=== PATIENT | male | born 1965 | race Two or more races ===

== ENCOUNTER 2022-01-11 05:06 | Inpatient (IN) | payer MEDICAID, OTHER ==
[~2022-01-11] VITALS: Ht 157.5 cm; Wt 90.3 kg
[2022-01-11] VITALS (48 sets, daily range): BP systolic 33–120; BP diastolic 21–68
--- NOTE | 2022-01-11 05:10 | NUR ---
VU 39 FROM [facility] FOR C/O LOW SAT. PATIENT ONLY RESPONSIVE TO PAINFUL STIMULI. RT WAS CALLED. PATIENT IN BED 08 ON MONITOR AND POX, AWAITING MD MONCADA.
--- NOTE | 2022-01-11 05:15 | NUR ---
rt placed pt on vent in er. pt trach and vent dependent. pt has increased rr at this time with low bp. peep discontinued. Addendum: 01/11/22 at 0609 by CLARITZA MOSQUEDA RT Amended: Links added.
[2022-01-11] MEDS ORDERED: VANCOMYCIN 1 GM VIAL ONE (05:28)
[2022-01-11] MEDS ORDERED: IV NS 0.9% 1,000 ML BAG IV ONE (05:30)
[2022-01-11] MEDS ORDERED: VANCOMYCIN 1 GM in IV D5W 250 ML IV ONE (05:30)
[2022-01-11] MEDS ORDERED: CEFEPIME 1 GM in IV D5W 50 ML IV ONE (05:30)
--- NOTE | 2022-01-11 05:30 | NUR ---
BLOOD AND CULTURES COLLECTED AND SENT TO LAB
--- NOTE | 2022-01-11 05:38 | NUR ---
XRAY AT BEDSIDE
--- NOTE | 2022-01-11 05:39 | NUR ---
ABEL CATHETER IN PLACE, BUT NO URINE OUTPUT.
--- NOTE | 2022-01-11 05:41 | NUR ---
COVID SWAB DONE AND SENT TO LAB
[2022-01-11 05:56] LABS: BASOPHILS % (AUTO) 0.3 % (0.0-2.0); EOSINOPHILS % (AUTO) 0.7 % (0.0-6.0); HEMATOCRIT 32 % (39-51); HEMOGLOBIN 10.3 g/dL (13.5-17.5); LYMPHOCYTES # (AUTO) 1.2 K/uL (0.8-4.8); LYMPHOCYTES % (AUTO) 13.4 % (20.0-44.0); MEAN CORPUSCULAR HGB CONC 32 g/dl (31.0-36.0); MEAN CORPUSCULAR VOLUME 95 fL (80-96); MONOCYTES # (AUTO) 0.1 K/uL (0.1-1.30); MONOCYTES % (AUTO) 0.9 % (2.0-12.0); NEUTROPHILS # (AUTO) 7.7 K/uL (1.8-8.9); NEUTROPHILS % (AUTO) 84.7 % (43.0-81.0); PLATELET COUNT (AUTO) 301 K/uL (150-450); RED BLOOD CELL COUNT(AUTO) 3.39 MIL/uL (4.5-6.0); WHITE BLOOD COUNT (AUTO) 9.1 K/uL (4.3-11.0)
[2022-01-11 06:18] LABS: CALCIUM, SERUM 8.6 mg/dL (8.5-10.1); CARBON DIOXIDE 15 mmol/L (21-32); CHLORIDE 101 mmol/L (98-107); CREATININE 2.1 mg/dL (0.6-1.3); GLUCOSE 127 mg/dL (74-106); SODIUM SERUM 138 mmol/L (136-145); UREA NITROGEN, BLOOD 30 mg/dL (7-18)
[2022-01-11] MEDS ORDERED: NOREPINEPHRINE 4 MG/4 ML AMPUL IV ONE (06:20)
--- NOTE | 2022-01-11 06:29 | NUR ---
LEVOPHED INITIATED AT 0.1MG @CENTRAL LINE INFUSING WELL. Addendum: 01/11/22 at 0653 by SANDEE MCG*
[2022-01-11 06:42] LABS: ALANINE AMINOTRANSFERASE 87 U/L (12-78); ALBUMIN 1.8 g/dL (3.4-5.0); ASPARTATE AMINOTRANSFERASE 125 U/L (15-37); BILIRUBIN,DIRECT 1.7 mg/dL (0.0-0.2); BILIRUBIN,TOTAL 1.9 mg/dL (0.2-1.0); TOTAL PROTEIN, SERUM 6.4 g/dL (6.4-8.2)
[2022-01-11] MEDS: NOREPINEPHRINE 8 MG in IV NS 0.9% 242 ML IV PRN ×6 (06:42→10:13)
[2022-01-11 06:47] LABS: ALKALINE PHOSPHATASE 1245 U/L (46-116)
--- NOTE | 2022-01-11 06:52 | NUR ---
LEVOPHED AT 0.5MCG/KG/MIN BP IMPROVING AT 99/51 INFUSING WELL.
[2022-01-11] MEDS ORDERED: ACETAMINOPHEN 650 MG/SUPP.RECT RC ONE ×2 (07:00→07:10)
--- NOTE | 2022-01-11 07:15 | NUR ---
[facility] PAGED
--- NOTE | 2022-01-11 07:30 | NUR ---
RECEIVED PT FROM JOSE MANNING WITH TRACH CONECTED TO MECHINCLE VENT SITTING TV 500 AC14 FIO2 60% O2 SAT 100% LEVOPHED DRIP AT 0.7MCG/KG/MIN
--- NOTE | 2022-01-11 08:07 | NUR ---
LAB CALLED [facility] [address] DR[address] PARKER AWARE.
[2022-01-11] MEDS ORDERED: LEVE100S GT (08:20)
[2022-01-11] MEDS ORDERED: DOCU-141 GT (08:20)
[2022-01-11] MEDS ORDERED: ASPI-1169 GT (08:20)
[2022-01-11] MEDS ORDERED: GLYC2TAB21 GT (08:20)
[2022-01-11] MEDS ORDERED: CHLO473M5 MM (08:20)
[2022-01-11] MEDS ORDERED: AMIN30LI2 GT (08:20)
[2022-01-11] MEDS ORDERED: LEVO25TA7 GT (08:20)
[2022-01-11] MEDS ORDERED: CRAN425C6 GT (08:20)
[2022-01-11] MEDS ORDERED: POVI3780 TP (08:20)
[2022-01-11] MEDS ORDERED: NA P133E RC (08:20)
[2022-01-11] MEDS ORDERED: CHLO118L6 TP (08:20)
[2022-01-11] MEDS ORDERED: LORA-259 GT (08:20)
[2022-01-11] MEDS ORDERED: RIVA10TA GT (08:20)
[2022-01-11] MEDS ORDERED: SENN-261 GT (08:20)
[2022-01-11] MEDS ORDERED: POLY17PO4 GT (08:20)
[2022-01-11] MEDS ORDERED: ASCO-352 GT (08:20)
[2022-01-11] MEDS ORDERED: CHOL100043 GT (08:20)
[2022-01-11] MEDS ORDERED: PETR113O TP (08:20)
[2022-01-11] MEDS ORDERED: ACET-868 GT (08:20)
[2022-01-11] MEDS ORDERED: MAGN400O6 GT (08:20)
[2022-01-11] MEDS ORDERED: ACET-2605 GT (08:20)
[2022-01-11] MEDS ORDERED: ALBU2.5V38 IH ×2 (08:20)
[2022-01-11] MEDS ORDERED: LACT-209 GT (08:20)
[2022-01-11] MEDS ORDERED: CRAN3875 GT (08:20)
[2022-01-11] MEDS ORDERED: INSU100V11 SQ (08:20)
[2022-01-11] MEDS ORDERED: OMEP20CA15 GT (08:20)
[2022-01-11] MEDS ORDERED: HYDR-4076 GT (08:20)
[2022-01-11] MEDS ORDERED: GLUC1KIT IM (08:20)
[2022-01-11] MEDS ORDERED: BISA10SU11 RC (08:20)
[2022-01-11] MEDS ORDERED: LACT1CAP69 GT (08:20)
[2022-01-11] MEDS ORDERED: LORA2VIA6 IM (08:20)
[2022-01-11] MEDS ORDERED: IPRA0.2S9 IH ×2 (08:20)
--- NOTE | 2022-01-11 08:56 | NUR ---
room 253
--- NOTE | 2022-01-11 09:25 | NUR ---
pt condition criticale contenue levophed drip at 0.7mcg/kg/min at 122m/hr bp 91/54mmhg
--- NOTE | 2022-01-11 09:25 | NUR ---
HAND OFF GARRET RN TO ICU CHANGE DRESSING ON RT FEMORALE
--- NOTE | 2022-01-11 09:45 | NUR ---
RN OPENING NOTE PT RECEIVED FROM ED AND IS ON MECHANICAL VENT WITH ALL PRESCRIBED SETTINGS TOLERATING WELL O2 SAT 100%. PT IS A/OX 0 AT THIS TIME NON VERBAL AND ONLY RESPONSIVE TO LIGHT AND DEEP PAIN STIMULATION. GTUBE WAS LEAKY WHEN RECEIVED AND CLAMPED AT THIS TIME. FC IS IN PLACE NO URINE DRAINING AT THIS TIME. IV ACCESS R FEMORAL CENTRAL LINE INFUSING WITH NS @75ML/HR AND LEVO @0.7MCG; R ANKLE IV; L UA. BED IS LOCKED IN LOWEST POSITION X2 BED RAILS UP AND ALL HOSPITAL SAFETY MEASURES ARE IN PLACE. WILL CONTINUE TO MONITOR THIS SHIFT.
[2022-01-11] MEDS ORDERED: MAGNESIUM HYDROXIDE 30 ML UDC PO PRN (10:00)
[2022-01-11] MEDS ORDERED: ONDANSETRON HCL/PF 4 MG/2 ML VIAL IVP PRN (10:00)
[2022-01-11] MEDS ORDERED: DEXTROSE 50%-WATER 50 ML DISP.SYRIN IV PRN ×2 (10:00→15:00)
[2022-01-11] MEDS ORDERED: MAGNESIUM HYDROXIDE 30 ML UDC GT PRN (10:00)
[2022-01-11] MEDS ORDERED: BISACODYL SUPP (10 MG) 10 MG/SUPP.RECT SUPP.RECT RC PRN (10:00)
[2022-01-11] MEDS ORDERED: IV NS 0.9% 1,000 ML IV PRN ×2 (10:00→10:26)
[2022-01-11] MEDS ORDERED: ACETAMINOPHEN 325 MG TABLET PO PRN ×2 (10:00)
[2022-01-11] MEDS ORDERED: NA PHOS,M-B/NA PHOS,DI-BA 1 EA ENEMA RC PRN (10:00)
[2022-01-11] MEDS ORDERED: *INSULIN REGULAR(HUMULIN R)HUM 100 UNIT/ML VIAL SQ PRN (10:00)
[2022-01-11] MEDS ORDERED: MAG HYDROX/AL HYDROX/SIMETH 30 ML UDC PO PRN (10:00)
[2022-01-11] MEDS ORDERED: Z GUARD REMEDY 4 OZ OINT TP PRN (10:00)
[2022-01-11] MEDS ORDERED: JEVITY 1.2 CAL 1,000 ML BOTTLE GT SCH (10:00)
[2022-01-11] MEDS ORDERED: INSULIN REGULAR, HUMAN 100 UNIT/ML 3 ML VIAL SQ PRN ×2 (10:00→15:00)
[2022-01-11] MEDS ORDERED: VANCOMYCIN 500 MG in IV D5W 100ml IV ONE (11:00)
[2022-01-11] MEDS: PROPOFOL 100 ML IV PRN ×4 (11:01→18:46)
--- NOTE | 2022-01-11 11:01 | NUR ---
RN NOTE: DIPRIVAN DIPRIVAN STARTED AT THIS TIME 5MCG/KG/MIN.
--- NOTE | 2022-01-11 11:19 | NUR ---
RN NOTE: KAROL PT BS 78. PER SLIDING SCALE, NO COVERAGE NEEDED AT THIS TIME.
[2022-01-11] MEDS ORDERED: IV NS 0.9% 250 ML IV PRN (11:30)
[2022-01-11] MEDS ORDERED: NOREPINEPHRINE 8 MG in IV NS 0.9% 242 ML IV PRN (11:30)
[2022-01-11] MEDS ORDERED: BLOOD SUGAR DIAGNOSTIC 1 EACH STRIP VI SCH (12:00)
[2022-01-11] MEDS: PHENYLEPHRINE 50 MG in IV NS 0.9% 245 ML IV PRN ×2 (12:31→17:51)
--- NOTE | 2022-01-11 12:31 | NUR ---
RN NOTE: JAQUAN NEOSYNEPHRINE STARTED AT THIS TIME @ 0.5MCG/KG/MIN.
--- NOTE | 2022-01-11 12:47 | NUR ---
RN NOTE: SODIUM BICARB SODIUM BICARB STARTED AT THIS TIME @125ML/HR.
[2022-01-11] MEDS ORDERED: Sodium Bicarbonate 150 MEQ in IV D5W 1,000 ML IV SCH (13:00)
[2022-01-11] MEDS: NOREPINEPHRINE 32 MG in IV NS 0.9% 218 ML IV PRN ×2 (13:24→18:40)
--- NOTE | 2022-01-11 13:24 | NUR ---
RN NOTE: LEVO 32MG CONCENTRATION OF LEVOPHED STARTED AT THIS TIME.
[2022-01-11] MEDS: ZOSYN IVPB 3.375 G in IV D5W 50ml IV SCH ×2 (13:35→18:46)
--- NOTE | 2022-01-11 15:05 | NUR ---
RN NOTE: PHONE CALL TO [phone] THIS NURSE MADE CONTACT WITH VIA TELEPHONE TO SEEK CLARIFICATION ON POLST. POLST COPY FROM 12/03/2021 THAT WAS BROUGHT IN WITH PT WHEN BROUGHT TO [facility] STATES: A: DNR, B: SELECTIVE TREATMENT & REQUEST TRANSFER TO HOSPITAL ONLY IF COMFORT NEEDS CANNOT BE MET IN CURRENT LOCATION, C:LONG-TERM ARTIFICIAL NUTRITION, INCLUDING FEEDING TUBES, D: DISCUSSED WITH: LEGALLY RECOGNIZED DECISION MAKER & NO ADVANCE DIRECTIVE. THE COPY OBTAINED WAS NOT SIGNED BY . THIS NURSE ASKED FOR VERIFICATION AND HUNG UP.
--- NOTE | 2022-01-11 15:10 | NUR ---
RN NOTE: PHONE CALL: DAUGHTER THIS NURSE ATTEMPTED TO CONTACT PT'S DAUGHTER (PRESLEY KELLY [phone] AND REQUESTED DAUGHTER TO CALL BACK TO SEEK CLARIFICATION.
[2022-01-11] MEDS ORDERED: HYDROCORTISONE SOD SUCCINATE 100 MG/2 ML VIAL IV SCH (15:30)
[2022-01-11] MEDS ORDERED: MAG HYDROX/AL HYDROX/SIMETH 30 ML UDC GT PRN (15:58)
[2022-01-11] MEDS ORDERED: ACETAMINOPHEN 650 MG/20.3 ML UDC GT PRN (16:00)
[2022-01-11] MEDS ORDERED: PHARMACY TO CHANGE PO MEDS TO GT/NG XX PRN (16:00)
--- NOTE | 2022-01-11 16:19 | NUR ---
RN NOTE: TELEPHONE CALL: DAUGHTER PT'S DAUGHTER (JOAN DURANT) CALLED BACK AND STATED THAT FAMILY WANTS PT TO BE DNR/DNI. TWO RN VERIFICATION WITH MAYELA KAT TO CONFIRM DNR/DNI STATUS PER FAMILY. WILL NOTIFY .
[2022-01-11] MEDS ORDERED: CHLORHEXIDINE GLUCONATE 15 ML UDC MM SCH (17:00)
[2022-01-11] MEDS ORDERED: VASOPRESSIN INJ 40 UNIT in IV NS 0.9% 38 ML IV PRN (17:00)
[2022-01-11] MEDS ORDERED: DOCUSATE SODIUM LIQ 100 MG/10 ML UDC GT SCH (17:00)
[2022-01-11] MEDS ORDERED: RIVAROXABAN 10 MG TABLET GT SCH (17:00)
--- NOTE | 2022-01-11 17:50 | NUR ---
RN NOTE: CODE STATUS MESSAGED DR. LEON TO INFORM THAT FAMILY WANTED PT DNR/DNI.
--- NOTE | 2022-01-11 17:52 | NUR ---
RN NOTE: KAROL PT BS 122. PER SLIDING SCALE, NO COVERAGE NEEDED AT THIS TIME.
[2022-01-11] MEDS ORDERED: BLOOD SUGAR DIAGNOSTIC 1 EACH STRIP IN SCH (18:00)
[2022-01-11 18:33] LABS: ABG BASE EXCESS -18.1 mmol/L; ABG OXYGEN SATURATION 98.9 % (92.0-98.5); ABG PCO2 27.7 mmHg (35.0-45.0); ABG PH 7.146 (7.350-7.450); ABG PO2 191.5 mmHg (75.0-100.0); AaDO2 205.8 mmHg; COHb 0.3 % (0.5-1.5); MetHb 0.4 % (0.0-1.5); O2Hb 98.2 % (94.0-97.0); SITE, ABG Right Radial; VENT MODE, BG AC 60%; VT, ABG 500 mL
--- NOTE | 2022-01-11 19:05 | NUR ---
ICU/RN ASYSTOLE ON MONITOR.PT IS CHRONIC TRACH /VENT ,WAS ON 3 PRESSORS MAXIMUM DOSE.PT WAS DNR/DNI.ACUTE RENAL FAILURE.SEPSIS PNA.
--- NOTE | 2022-01-11 19:05 | NUR ---
RN NOTE: SHIMON PT @190. PT'S DAUGHTER (JOAN) WAS CONTACTED VIA TELEPHONE AND LEFT VOICEMAIL REQUESTING CALL BACK. HAS ALSO BEEN NOTIFIED. Addendum: 01/11/22 at 1939 by GARRET DELATORRE RN PT'S DAUGHTER (PRESLEY DURANT) [phone]
--- NOTE | 2022-01-11 19:35 | NUR ---
ICU/RN CALL IMMUNOLOGY TEACHER OFFICE. THIS IS NOT IMMUNOLOGY TEACHER CASE.ONE [facility] CASE R [phone]. ANA MARIA NOTIFIED.DAVID SWIMMING POOL PLASTERER HELPER NOTIFIED.ADMITTING NOTIFIED. DR LEON NOTIFIED. FAMILY DAUGHTER PRESLEY DURANT [phone] MASSAGE LEFT.
--- NOTE | 2022-01-11 19:50 | NUR ---
RN NOTE: PHONE CALL: DAUGHTER (PRESLEY DURANT) THIS NURSE CALLED PT'S DAUGHTER AGAIN VIA TELEPHONE [phone] AND MADE CONTACT TO INFORM HER THAT PT AND WANTED TO ASK FOR INFORMATION ABOUT ARRANGEMENTS. NURSING INSTRUCTIONAL SPECIALIST'S PHONE NUMBER WAS PROVIDED TO DAUGHTER [phone]. DAUGHTER STATED SHE WOULD CONTACT NURSING INSTRUCTIONAL SPECIALIST.
[2022-01-11] MEDS ORDERED: LEVETIRACETAM SOL (5 ML) 100 MG/ML UDC GT SCH (21:00)
--- NOTE | 2022-01-11 21:50 | NUR ---
RN NOTE PT FAMILY, AND SONS AT BEDSIDE
[2022-01-11] MEDS ORDERED: SENNOSIDES 8.6 MG TABLET GT SCH (22:00)
--- NOTE | 2022-01-11 22:45 | NUR ---
RN NOTE FAMILY LEFT. ALL INFORMATIONS GIVEN. PT TO GERMAIN HERNÁNDEZ.
[2022-01-12] MEDS ORDERED: LEVOTHYROXINE SODIUM 25 MCG TABLET GT SCH (09:00)
[2022-01-12] MEDS ORDERED: PANTOPRAZOLE 40 MG/PACK PACK GT SCH (09:00)
[2022-01-12] MEDS ORDERED: POLYETHYLENE GLYCOL 3350 17 GM POWD.PACK GT SCH (09:00)
[2022-01-12] MEDS ORDERED: VANCOMYCIN 1.25 GM in IV D5W 250 ML IV SCH (12:00)
== END 2022-01-11 22:51 | DRG 720 ==
LOC: ER 05:08 → ICU 08:59
PROVIDERS: ADMIT Internal Medicine; ATTEND Internal Medicine
PROC: 5A1935Z Respiratory Ventilation, Less than 24 Consecutive Hours (ICD-10-PCS; principal; 2022-01-11)
DX: A41.9 Sepsis, unspecified organism (principal); N17.0 Acute kidney failure with tubular necrosis; J96.21 Acute and chronic respiratory failure with hypoxia; R65.21 Severe sepsis with septic shock; G93.41 Metabolic encephalopathy; J95.851 Ventilator associated pneumonia; J15.6 Pneumonia due to other Gram-negative bacteria; D68.59 Other primary thrombophilia; Z99.11 Dependence on respirator [ventilator] status; Z93.0 Tracheostomy status; Z20.822 Contact with and (suspected) exposure to COVID-19; N39.0 Urinary tract infection, site not specified; Z66 Do not resuscitate; R74.01 Elevation of levels of liver transaminase levels; R13.10 Dysphagia, unspecified; Z93.1 Gastrostomy status; Y95 Nosocomial condition; Z74.09 Other reduced mobility; G40.909 Epilepsy, unspecified, not intractable, without status epilepticus; E11.9 Type 2 diabetes mellitus without complications; D63.8 Anemia in other chronic diseases classified elsewhere; E03.9 Hypothyroidism, unspecified; E87.2 Acidosis; I10 Essential (primary) hypertension; I21.A1 Myocardial infarction type 2; I69.354 Hemiplegia and hemiparesis following cerebral infarction affecting left non-dominant side; Y84.8 Other medical procedures as the cause of abnormal reaction of the patient, or of later complication, without mention of misadventure at the time of the procedure; Y82.8 Other medical devices associated with adverse incidents
CPT/HCPCS: 31720; 36415; 36600; 71045-TC; 74018; 76705-TC; 76770-TC; 80048-TC; 80076-TC; 82533; 82803-TC; 82962-TC; 83605-TC; 84484-TC; 85025-TC; 85730-TC; 87040-TC; 87081-TC; 87186-TC; 94002-TC; 94799-TC; G0378; J0692; J1720; J1815; J2370; J2543; J3370; J3490; J7030; J7050; J7060; J7070